=== PATIENT | male | born 1945 | race Caucasian/White ===

== ENCOUNTER 2023-03-26 14:40 | Emergency (ER) | payer MEDICARE, OTHER ==
[2023-03-26 15:01] VITALS: BP 144/88; O2SAT 94
[2023-03-26] MEDS ORDERED: oxyCODONE 5 MG TABLET PO STA (15:32)
[2023-03-26] MEDS ORDERED: methocarbamoL 500 MG TABLET PO STA (15:32)
--- NOTE | 2023-03-26 15:35 | ED Physician Documentation ---
History of Present Illness - Stated complaint Stated Complaint: NECK PX,STIFFNESS,SPAMSMS - Chief complaint Chief Complaint: Back Pain - History obtained from History obtained from: Patient - History of Present Illness Timing: How many days ago (3) Pain level max: 8 Pain level now: 8 - Additonal information Additional information: 77-year-old male presents the emergency department with gradual onset neck pain over the past 3 days. No trauma. No recent illnesses. No fever. No cough. No congestion. No numbness, tingling or focal neuro deficits. no headache. No vision changes. Review of Systems Constitutional: denies: Fever, Chills Ears: denies: Ear pain Nose: denies: Rhinorrhea / runny nose, Congestion Throat: denies: Sore throat Cardiac: denies: Chest pain / pressure, Palpitations Respiratory: denies: Dyspnea, Cough GI: denies: Abdominal Pain, Nausea, Vomiting, Diarrhea Skin: denies: Rash Musculoskeletal: denies: Back pain Neurologic: denies: Focal weakness, Numbness, Confused, Altered mental status PD PAST MEDICAL HISTORY - Past Medical History Past Medical History: Yes Cardiovascular: Hypertension, Pulmonary embolism Respiratory: Asthma, COPD Derm: Other - Past Surgical History Past Surgical History: Yes - Present Medications Home Medications: Ambulatory Orders Medication Instructions Recorded Confirmed Oxycodone HCl/Acetaminophen 1 - 2 each PO Q6H PRN #14 tablet 03/26/23 [Percocet 5-325 mg Tablet] MDD 6 tabs methocarbamoL [Robaxin] 500 mg PO Q6H PRN #20 tablet 03/26/23 - Allergies Allergies/Adverse Reactions: Allergies Allergy/AdvReac Type Severity Reaction Status Date / Time No Known Drug Allergies Allergy Verified 03/26/23 15:00 - Social History Does the pt smoke?: No Smoking Status: Never smoker Does the pt drink ETOH?: Yes ETOH Use: Wine Does the pt have substance abuse?: No - Immunizations Immunizations are current?: Yes - POLST Patient has POLST: No PD ED PE NORMAL - Vitals Vital signs reviewed: Yes - General General: Alert and oriented X 3, No acute distress - HEENT HEENT: Atraumatic, PERRL, Moist mucous membranes - Neck Neck: No bony TTP, Other (Paraspinal spasm paracervical bilaterally. 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 Nontraumatic. No fevers. No evidence of meningitis, subarachnoid hemorrhage. No headache. Will prescribe pain medication and muscle relaxants for home. Given a dose of IM Dilaudid, Robaxin and oxycodone here. Normal neurological exam. No indication for emergent neuroimaging Will have him follow-up with his PCP for further care. Patient counseled regarding signs and symptoms for which I believe and urgent re- evaluation would be necessary. Patient with good understanding of and agreement to plan and is comfortable going home at this time This document was made in part using voice recognition software. While efforts are made to proofread this document, sound alike and grammatical errors may occur. Departure - Departure Disposition: 01 Home, Self Care Clinical Impression: Neck muscle spasm Condition: Good Instructions: ED Spasm Neck No Injury Follow-Up: Sharmila Mijares MD [Primary Care Provider] - Within 1 week Prescriptions: Oxycodone HCl/Acetaminophen [Percocet 5-325 mg Tablet] 1 - 2 each PO Q6H PRN #14 tablet MDD 6 tabs PRN Reason: pain methocarbamoL [Robaxin] 500 mg PO Q6H PRN #20 tablet PRN Reason: muscle spasm Comments: Your prescriptions were sent to [facility] in [place]. Please follow-up with your doctor for further care. Please return if you worsen. This should improve over the next several days, continue gentle stretching at home. This will help to relieve the spasm in your neck. Heat may help as well. I am prescribing a short course of narcotic pain medication for you. These are potentially dangerous and addictive medications that should be used carefully. These medications may constipate you. Take an snkf-aoo-[id number] stool softener (docusate) twice daily with plenty of water while taking these medications. If you go 24 hours without a bowel movement, take [id number] miralax, per package instructions. Do not drink or drive while taking these medications. If you received narcotic or sedating medications while in the emergency department, do not drive for 24 hours. Store this medication in a safe, secure place and out of reach of children. It is a violation of federal law to give or sell this medication to another person or to use in a manner other than prescribed. The ED will not refill narcotic prescriptions, including prescriptions lost or stolen. To dispose of unwanted medications: 1. [facility] [address] in [place] has a medication drop box. They accept prescription medications (in pill form) Tuesday through Tuesday 9:00 a.m. to 5:00 p.m. 2. [facility] accepts prescription medications (in pill form only) for disposal year round. Call for more information. 3. Contact the [facility] for the next [facility] sponsored prescription drug collection event. , [phone], or [phone];
[2023-03-26] MEDS ORDERED: HYDROmorphone 1 MG/ML CARPUJECT IM STA (16:28)
== END 2023-03-26 18:23 | disposition home or self-care (01) ==
LOC: ED 14:40
DX: M62.838 Other muscle spasm (principal)
CPT/HCPCS: 96372; 99283; A9270; J1170